=== PATIENT | male | born 1955 | race Caucasian/White ===

== ENCOUNTER 2019-04-18 17:50 | Inpatient (IN) | payer OTHER ==
[~2019-04-18] VITALS: Ht 180.3 cm; Wt 48.7 kg
[2019-04-18 17:20] VITALS: BP 145/70
[2019-04-19 01:27] VITALS: BP 145/70
[2019-04-19 09:00] VITALS: BP 139/63
[2019-04-19] MEDS ORDERED: COZAAR 25 MG TA25 M1 PO (09:10)
[2019-04-19] MEDS ORDERED: LIPITOR 20 MG T20 M1 PO (09:10)
[2019-04-19] MEDS ORDERED: FOLIC ACID1 MG PO (09:10)
[2019-04-19] MEDS ORDERED: METOPROLOL TART25 MG PO (09:11)
[2019-04-19] MEDS ORDERED: PLAVIX 75 MG TA75 MG PO (09:12)
[2019-04-19 12:30] VITALS: BP 120/60
[2019-04-19 19:23] VITALS: BP 149/72
[2019-04-19 23:13] VITALS: BP 149/72
[2019-04-20 09:21] VITALS: BP 132/78
[2019-04-20 19:42] VITALS: BP 141/81
[2019-04-21 09:04] VITALS: BP 137/82
[2019-04-21 10:21] LABS: HEMATOCRIT 43.4 % (42.0-52.0); MCH 30.9 pg (26.0-34.0); MCHC 32.3 g/dL (28.0-37.0); MCV 95.5 fL (80.0-100.0); RBC 4.55 mil/uL (4.50-6.00); RDW 13.7 % (10.5-14.5); WBC 4.5 thou/uL (4.0-11.0)
[2019-04-21 10:31] LABS: CALCIUM 9.8 mg/dL (8.5-10.1); CREATININE 0.9 mg/dL (0.7-1.3); MAGNESIUM 1.9 mg/dL (1.8-2.4); POTASSIUM 4.4 mmol/L (3.5-5.1)
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
[2019-04-21 19:50] VITALS: BP 127/64
[2019-04-21 21:53] VITALS: BP 127/64
[2019-04-22 07:30] VITALS: BP 133/69
[2019-04-22 07:56] VITALS: BP 133/69
[2019-04-22 16:55] LABS: TSH 1.492 uIU/mL (0.358-3.740)
[2019-04-22 19:39] VITALS: BP 154/86
[2019-04-22 23:55] VITALS: BP 154/86
[2019-04-23 07:30] VITALS: BP 136/75
[2019-04-23 08:59] VITALS: BP 136/75
[2019-04-23 09:10] LABS: HIV ANTIBODY Non Reactive (Non Reactive)
[2019-04-23 19:47] VITALS: BP 144/74
[2019-04-24 08:01] VITALS: BP 138/67
[2019-04-24 19:37] VITALS: BP 127/63
[2019-04-25 09:32] VITALS: BP 125/69
[2019-04-25 11:33] VITALS: BP 125/69
[2019-04-25 20:22] VITALS: BP 151/70
[2019-04-25 23:08] LABS: SYPHILIS AB Non Reactive (Non Reactive)
[2019-04-26 08:58] VITALS: BP 125/70
[2019-04-26 12:45] VITALS: BP 125/70
[2019-04-26 20:08] VITALS: BP 119/67
[2019-04-27 07:50] VITALS: BP 123/63
[2019-04-27 20:00] VITALS: BP 124/70
[2019-04-28 07:44] VITALS: BP 144/78
[2019-04-28 10:39] VITALS: BP 95/74
[2019-04-28 19:51] VITALS: BP 136/75
[2019-04-28 21:45] VITALS: BP 136/75
[2019-04-29 08:01] VITALS: BP 159/90
[2019-04-29 10:40] VITALS: BP 104/56
[2019-04-29 20:24] VITALS: BP 140/65
[2019-04-30 09:53] VITALS: BP 127/63
[2019-04-30 16:49] VITALS: BP 127/63
[2019-04-30 19:25] VITALS: BP 153/69
[2019-05-01 07:30] VITALS: BP 134/69
[2019-05-01 09:10] VITALS: BP 134/69
[2019-05-01 20:32] VITALS: BP 124/75
[2019-05-02 09:15] VITALS: BP 112/64
[2019-05-02 20:44] VITALS: BP 129/69
[2019-05-03 08:31] VITALS: BP 129/80
[2019-05-03] MEDS ORDERED: IPRAT-ALBUT 0.5-3 ML INH (12:40)
[2019-05-03] MEDS ORDERED: CLOPIDOGREL75 MG PO (12:40)
[2019-05-03] MEDS ORDERED: LOPRESSOR25 PO (12:41)
[2019-05-03] MEDS ORDERED: COZAAR 25 MG TA25 M1 PO (12:41)
[2019-05-03] MEDS ORDERED: LIPITOR40 MG PO (12:41)
[2019-05-03] MEDS ORDERED: TRAZODONE HCL100 MG PO (12:42)
[2019-05-03] MEDS ORDERED: SYMBICORT80 MCG/4.1 PO (12:43)
[2019-05-03] MEDS ORDERED: PEPCID20 MG PO (12:44)
[2019-05-03] MEDS ORDERED: VITAMIN D325 MCG PO (12:44)
[2019-05-03] MEDS ORDERED: SPIRIVA18 MCG INH (14:46)
[2019-05-03] MEDS ORDERED: MUCINEX600 MG PO (14:46)
[2019-05-03] MEDS ORDERED: PROAIR HFA8.5 GM INH (14:46)
[2019-05-03] MEDS ORDERED: FLOMAX0.4 MG PO (14:51)
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
== END 2019-05-03 15:25 | DRG 57 ==
LOC: SBH 17:50
PROVIDERS: Internal Medicine; ADMIT Psychiatry & Neurology Psychiatry
DX: G30.9 Alzheimer's disease, unspecified (principal); F01.51 Vascular dementia, unspecified severity, with behavioral disturbance; J44.1 Chronic obstructive pulmonary disease with (acute) exacerbation; F02.81 Dementia in other diseases classified elsewhere, unspecified severity, with behavioral disturbance; F14.20 Cocaine dependence, uncomplicated; F23 Brief psychotic disorder; J44.0 Chronic obstructive pulmonary disease with (acute) lower respiratory infection; E78.5 Hyperlipidemia, unspecified; Z60.2 Problems related to living alone; F32.9 Major depressive disorder, single episode, unspecified; F22 Delusional disorders; J20.9 Acute bronchitis, unspecified; I25.10 Atherosclerotic heart disease of native coronary artery without angina pectoris; F10.10 Alcohol abuse, uncomplicated; Z81.8 Family history of other mental and behavioral disorders; Z82.3 Family history of stroke; Z83.3 Family history of diabetes mellitus; Z82.49 Family history of ischemic heart disease and other diseases of the circulatory system; Z95.1 Presence of aortocoronary bypass graft; Z79.899 Other long term (current) drug therapy
CPT/HCPCS: 10880

== ENCOUNTER 2019-06-14 14:25 | Inpatient (IN) | payer OTHER ==
[~2019-06-14] VITALS: Ht 180.3 cm; Wt 76.4 kg
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
[2019-06-14 14:25] VITALS: BP 125/65
[~2019-06-14 14:25] MED LIST: CLOPIDOGREL75 MG PO; COZAAR 25 MG TA25 M1 PO; FLOMAX0.4 MG PO; FOLIC ACID1 MG PO; IPRAT-ALBUT 0.5-3 ML INH; LIPITOR 20 MG T20 M1 PO; LIPITOR40 MG PO; LOPRESSOR25 PO; METOPROLOL TART25 MG PO; MUCINEX600 MG PO; PEPCID20 MG PO; PLAVIX 75 MG TA75 MG PO; PROAIR HFA8.5 GM INH; SPIRIVA18 MCG INH; SYMBICORT80 MCG/4.1 PO; TRAZODONE HCL100 MG PO; VITAMIN D325 MCG PO
[2019-06-14 14:58] LABS: ABSOLUTE NEUTROPHILS 4.8 thou/uL (1.4-8.2); BASOPHILS 0.6 % (0.0-2.0); EOSINOPHILS 1.6 % (0.0-3.0); HEMATOCRIT 37.3 % (42.0-52.0); HEMOGLOBIN 12.4 gm/dL (14.0-18.0); LYMPHOCYTES 11.2 % (24.0-44.0); MCH 29.9 pg (26.0-34.0); MCHC 33.3 g/dL (28.0-37.0); MCV 89.7 fL (80.0-100.0); MONOCYTES 8.1 % (1.0-8.0); PLATELET COUNT 467 thou/uL (150-400); POLYS 78.5 % (36.0-66.0); RBC 4.16 mil/uL (4.50-6.00); RDW 13.5 % (10.5-14.5); WBC 6.1 thou/uL (4.0-11.0)
[2019-06-14 15:08] LABS: ANION GAP 6 mmol/L (7-16); BUN 9 mg/dL (7-18); CALCIUM 8.3 mg/dL (8.5-10.1); CHLORIDE 91 mmol/L (98-107); CO2 28 mmol/L (21-32); CREATININE 0.9 mg/dL (0.7-1.3); GLUCOSE 222 mg/dL (74-106); POTASSIUM 4.5 mmol/L (3.5-5.1); SODIUM 125 mmol/L (136-145)
[2019-06-14 15:18] LABS: ALBUMIN 2.2 g/dL (3.4-5.0); SGOT 150 U/L (15-37); SGPT 133 U/L (30-65); TOTAL BILIRUBIN 0.4 mg/dL (<0.1-1.0); TOTAL PROTEIN 7.3 g/dL (6.4-8.2); TROPONIN-I <0.06 ng/mL (<0.06)
[2019-06-14 16:24] VITALS: BP 129/70
[2019-06-14 18:13] VITALS: BP 128/77
--- NOTE | 2019-06-14 18:52 | NUR ---
PT ADMITTED TO [facility] AT 1830. VITALS AND ASSESSMENT COMPLETED.PT HAS A PRODUCTIVE COUGH, YELLOW SPUTUM. PT ON ROOM AIR, LUNGS DIMINISHED, WHEEZY. PT ALERT AND ORIENTED X4. PT ORIENTED TO ROOM. FALL RISK CONSENT SIGNED. CALL LIGHT IN REACH AND BED ALARM ON. PT DENIES ANY OTHER NEEDS.
[2019-06-14 21:10] VITALS: BP 129/74
[2019-06-14 23:59] VITALS: BP 132/69
[2019-06-15 03:50] VITALS: BP 118/72
--- NOTE | 2019-06-15 05:14 | NUR ---
ASSUMED PT CARE AROUND 1900. A&OX4. DENIES ANY PAIN OR SIGNIFICANT SOA. ADMISSION HX AND ASSESSMENT COMPLETED CHARTED. GIVEN HS SLEEPING MEDICATION PER DR ORDER. PT HAS BEEN SLEEPING MOST OF THE NIGHT. RESPIRATIONS EVEN AND UNLABORED. FALL PRECAUTIONS IN PLACE. NO MAJOR COMPLAINTS THIS SHIFT. PROGRESSING TOWARD POC GOALS.
[2019-06-15 05:28] LABS: HEMATOCRIT 37.1 % (42.0-52.0); HEMOGLOBIN 12.3 gm/dL (14.0-18.0); MCH 29.7 pg (26.0-34.0); MCHC 33.2 g/dL (28.0-37.0); MCV 89.5 fL (80.0-100.0); RBC 4.14 mil/uL (4.50-6.00); RDW 13.5 % (10.5-14.5); WBC 4.6 thou/uL (4.0-11.0)
[2019-06-15 05:51] LABS: CALCIUM 8.2 mg/dL (8.5-10.1); CREATININE 0.9 mg/dL (0.7-1.3); POTASSIUM 4.3 mmol/L (3.5-5.1)
[2019-06-15 08:08] VITALS: BP 127/73
--- NOTE | 2019-06-15 09:28 | NUR ---
Pt alert and oriented X4. Assessment and morning meds given. Call light in reach and bed at lowest level. Pt denies any other needs. Will continue to monitor.
--- NOTE | 2019-06-15 12:40 | 2DMMODE ---
[facility] [place] [address] [address] [place] [address] 2 D/M-MODE ECHOCARDIOGRAM Name: ANDREW RIVERA Room #: 359-P ADM IN .R.#: [id number] Admission: 06/14/19 Attend Phys: Eddie Ni MD Discharge: Date of : 59 Report #: [id number] THIS REPORT FOR: cc: Mustapha Washburn,Mustapha Castano,Roc Ferro MD [facility] ~ APPROVED REPORT Study performed: 06/15/2019 10:32:48 EXAM: Comprehensive 2D, Doppler, and color-flow Echocardiogram Patient Location: In-Patient Room #: 359 Status: routine BSA: 1.97 HR: 87 bpm BP: 127/75 mmHg Other Information Study Quality: Adequate Risk Factors: Cardiac Risk Factors: Smoking Indications Dyspnea CAD 2D Dimensions RVDd: 37.66 mm IVSd: 10.22 (7-11mm) LVOT Diam: 20.63 (18-24mm) LVDd: 51.97 mm PWd: 12.17 (7-11mm) Ascending Ao: 30.27 (22-36mm) LVDs: 34.88 (25-40mm) Aortic Root: 30.80 mm Volumes Left Atrial Volume (Systole) Single Plane 4CH: 57.60 mL Single Plane 2CH: 34.83 mL Aortic Valve AoV Peak Shaq.: 1.43 m/s AO Peak Gr.: 8.22 mmHg AO Mean Gr.: 3.70 mmHg [facility] [address] [place] [address] 2 D/M-MODE ECHOCARDIOGRAM Name: MIGUELANDREW Jonathan Room #: 359-P ADM IN M.R.#: [id number] Admission: 06/14/19 Attend Phys: Eddie Ni MD Discharge: Date of : 59 Report #: [id number] AO V2 Mean: 0.87 m/s AO V2 VTI: 27.40 cm Mitral Valve MV E Max Shaq.: 1.92 m/s Pulmonary Valve PV Peak Shaq.: 0.93 m/s PV Peak Gr.: 3.43 mmHg Tricuspid Valve TR Peak Shaq.: 3.50 m/s TR Peak Gr.: 49.00 mmHg Left Ventricle The left ventricle is normal size. Borderline concentric left ventricular hypertrophy. The left ventricular systolic function is normal. The left ventricular ejection fraction is within the normal range. LVEF is 60%. Right Ventricle Right ventricle is borderline dilated. The right ventricular systolic function is normal. Aortic Valve The aortic valve is normal in structure. No aortic regurgitation is present. There is no aortic valvular stenosis. Mitral Valve Mitral valve leaflets are minimally thickened. Moderate mitral regurgitation. There is reversal of flow in pulmonary veins. Tricuspid Valve Tricuspid valve is grossly normal in structure. Mild tricuspid regurgitation. Estimated PAP 60 mmHg. Pulmonic Valve Pulmonic valve is not well visualized. Trace to mild pulmonic regurgitation. Great Vessels The aortic root is normal in size. IVC is normal in size and collapses >50% with inspiration. Pericardium There is no pericardial effusion. [facility] [address] [place] [address] 2 D/M-MODE ECHOCARDIOGRAM Name: MIGUELANDREW Jonathan Room #: 359-P ADM IN M.R.#: [id number] Admission: 06/14/19 Attend Phys: Eddie Ni MD Discharge: Date of : 59 Report #: [id number] <Conclusion> The left ventricle is normal size. Borderline concentric left ventricular hypertrophy. LVEF is 60%. Right ventricle is borderline dilated. The right ventricular systolic function is normal. The aortic valve is normal in structure. Mitral valve leaflets are minimally thickened. Moderate mitral regurgitation. There is reversal of flow in pulmonary veins. Mild tricuspid regurgitation. Estimated PAP 60 mmHg. The aortic root is normal in size. There is no pericardial effusion. <ELECTRONICALLY SIGNED> By: Roc Simpson MD, FACC 06/15/19 1239 1239 1239 Roc Simpson MD, FACC /INF
[2019-06-15 15:29] VITALS: BP 136/72
[2019-06-15 19:31] VITALS: BP 136/70
[2019-06-16 03:06] LABS: GLYCOHEMOGLOBIN (HGB A1C) 7.7 % (4.8-5.6)
--- NOTE | 2019-06-16 03:23 | NUR ---
ASSUMED PT CARE AROUND 1900. A&OX4. DENIES ANY PAIN. PT STATED HE FEELS LIKE HIS BREATHING IS IMPROVING. C/O DIFFICULTY SLEEPING, EVEN AFTER TAKING SLEEPING MEDICATION. VSS. AFEBRILE. BG ELEVATED, GIVEN INSULIN PER SLIDING SCALE. VOIDS INDEPENDENTLY PER URINAL. NO MAJOR COMPLAINTS THIS SHIFT. PROGRESSING TOWARD POC GOALS. WILL CONTINUE TO MONITOR FURTHER.
[2019-06-16 04:33] VITALS: BP 131/81
[2019-06-16 07:25] VITALS: BP 143/84
[2019-06-16 08:55] LABS: HEMATOCRIT 37.1 % (42.0-52.0); HEMOGLOBIN 11.9 gm/dL (14.0-18.0); MCH 28.4 pg (26.0-34.0); MCHC 31.9 g/dL (28.0-37.0); RBC 4.17 mil/uL (4.50-6.00); RDW 13.5 % (10.5-14.5)
[2019-06-16 09:03] LABS: CALCIUM 8.5 mg/dL (8.5-10.1); CREATININE 0.8 mg/dL (0.7-1.3); MAGNESIUM 1.8 mg/dL (1.8-2.4); POTASSIUM 4.7 mmol/L (3.5-5.1)
[2019-06-16 09:09] LABS: ALBUMIN 2.2 g/dL (3.4-5.0); DIRECT BILIRUBIN < 0.1 mg/dL (<0.1-0.2); SGOT 44 U/L (15-37); SGPT 104 U/L (30-65); TOTAL BILIRUBIN 0.3 mg/dL (<0.1-1.0); TOTAL PROTEIN 6.9 g/dL (6.4-8.2)
[2019-06-16 09:10] LABS: WBC 17.9 thou/uL (4.0-11.0)
--- NOTE | 2019-06-16 12:52 | HC ---
[facility] [place] [address] CONSULTATION Name: ANDREW RIVERA Room #: 359-P ADM IN .R.#: [id number] Admission: 06/14/19 Attend Phys: Eddie Ni MD Discharge: Date of : 59 Report #: [id number] THIS REPORT FOR: cc: Mustapha Washburn Eric DO Al-Mubaslat, Ahmad MD ~ CC: Mustapha Prasad DATE OF SERVICE: 06/15/2019 ENDOCRINE CONSULTATION NOTE CONSULTING PHYSICIAN: Dr. Lassiter. REASON FOR CONSULTATION: Hyperglycemia. HISTORY OF PRESENT ILLNESS: This is a 63-year-old male patient whose medical background is significant for hypertension, coronary artery disease, COPD, hyperlipidemia who has been staying at the [facility]. The patient was sent to the ER yesterday with complaints of progressive cough, congestion, difficulty breathing as well as generalized weakness. The patient was then admitted with a diagnosis of pneumonia, influenza A for which he tested positive and hyponatremia. The patient was admitted for further care and monitoring. Given his presenting issues, the patient started therapy with Levaquin, Tamiflu and high-dose steroid therapy in the form of Solu-Medrol 40 mg q.i.d. As this was done, it was noted that the patient's blood glucose levels have risen to as high as 323 mg/dL. These have ranged specifically between 222 and 323 mg/dL. Blood glucose documentation in 04/2019 was at 174 mg/dL. The patient is not aware of any prior diagnosis of hyperglycemia or type 2 diabetes mellitus and has never been on treatment for diabetes in the past. However, his family history is noted for diabetes mellitus affecting his mother. REVIEW OF SYSTEMS: CONSTITUTIONAL: Fatigue, tiredness, intermittent issues with fever, low grade and chills. No weight changes. HEENT: Negative for sinus pain, but noted for sinus congestion, ear fullness. PULMONARY: Shortness of breath and cough productive, no hemoptysis. CARDIAC: Exertional dyspnea. Occasional orthopnea, lower extremity swelling. No chest pain, palpitations or syncope. GASTROINTESTINAL: Abdominal discomfort, nausea, but no vomiting. NEUROLOGY: Negative for loss of consciousness, seizure activity or severe frequent headaches. UROLOGY: Negative for dysuria, hematuria. PSYCHIATRIC: Negative for hallucinations, delusions. [facility] [address] [place] [address] CONSULTATION Name: MIGUELANDREW Jonathan Room #: 359-P [facility] IN .R.#: [id number] Admission: 06/14/19 Attend Phys: Eddie Ni MD Discharge: Date of : 59 Report #: [id number] Otherwise, review of systems noncontributory other than those mentioned in HPI. PAST MEDICAL HISTORY: Noted for: 1. Hypertension. 2. Hyperlipidemia. 3. Chronic obstructive pulmonary disease. 4. Gastroesophageal reflux disease. 5. Coronary artery disease, status post coronary artery bypass graft. 6. Benign prostatic hypertrophy. OUTPATIENT MEDICATIONS: Include: 1. Atrovent. 2. Plavix. 3. Atorvastatin. 4. Metoprolol 25 mg b.i.d. 5. Losartan 25 mg daily. 6. Trazodone 100 mg p.r.n. 7. Symbicort. 8. Pepcid. 9. Vitamin D3. 10. Mucinex. 11. Spiriva. 12. ProAir. 13. Flomax. ALLERGIES: The patient has no known drug allergies. FAMILY HISTORY: Noted for type 2 diabetes mellitus. SOCIAL HISTORY: The patient lives at the [facility]. Denies the active use of alcohol, tobacco or illicit drugs. PHYSICAL EXAMINATION: GENERAL: male patient who is not in apparent pain or distress. VITAL SIGNS: Blood pressure is 127/73 mmHg, heart rate is 81 beats per minute, respirations 20 per minute, temperature 36.3 degrees. CONSTITUTIONAL: The patient is sitting upright in bed, appears comfortable, not in apparent pain or distress. HEENT: Anicteric sclerae. Intact extraocular motions. NECK: Supple, without JVD. No thyromegaly. CHEST: Noted for moderate entry bilaterally with scattered rales and rhonchi as well as wheezes. HEART: Regular rate and rhythm without murmurs or gallops. ABDOMEN: Soft and lax without tenderness or organomegaly, has active bowel sounds. [address] [address] CONSULTATION Name: MIGUELANDREW Jonathan Room #: 359-P [facility] IN M.R.#: [id number] Admission: 06/14/19 Attend Phys: Eddie Ni MD Discharge: Date of : 59 Report #: [id number] EXTREMITIES: Lower extremity exam is noted for trace edema, skin breaks or ulcerations. NEUROLOGIC: Awake, alert and oriented to time, place and person. The remainder of his examination is largely nonfocal. PSYCHIATRIC: Pleasant, interactive. Normal mood and affect. LABORATORY DATA: Blood glucose values are as noted above. Otherwise, sodium 130, was 125 on arrival, his baseline 04/2019 was at 134; potassium 4.3; chloride 93; CO2 of 27; anion gap 10; BUN 12; creatinine 0.9; glucose 323. AST 150, total bilirubin 0.44, calcium 8.2, magnesium 1.9, alkaline phosphatase 159, ALT 133, protein 7.3, albumin 2.2. EGFR 86. White blood count 4.6, hemoglobin 12.3, hematocrit 37.1, platelets 412. TSH in 04/2019 was 1.492. ASSESSMENT AND PLAN: 1. Hyperglycemia. Although the patient does not have a formal diagnosis of diabetes mellitus, his recorded blood glucose values were well within a diabetic range. Undoubtedly, the current significant pulmonary stress in the form of active influenza and pneumonia as well as the use of high dose steroid therapy have collectively place the patient under more than usual pressure, but the occurrence of severe hyperglycemia under these conditions strongly suggests that baseline hyperglycemia might exist at some level as well. The patient was counseled about this findings at length and I highlighted the importance of implementing adequate glycemic control both short term and superintendent [employer]. In order to investigate his overall outlook, I will obtain a hemoglobin A1c. In the immediate setting, I will place the patient on a customized low intensity Humalog supplemental scale, whereby he would receive insulin only if blood glucose values are above 200 mg/dL. I will also place him on metformin therapy at a dose of 750 mg b.i.d., which should specifically assist with the issue of steroid-induced hyperglycemia. Blood glucose monitoring will commence a.c. and at bedtime and further therapeutic changes will be made accordingly. 2. Hypertension. The patient's level of blood pressure control is adequate, he is to continue with the current regimen of losartan and metoprolol. 3. Hyperlipidemia. The patient is on atorvastatin therapy and tolerates it well, he is to continue with the same. 4. Hyponatremia. As noted above, the patient presented with significant hyponatremia with a sodium of 125 that quickly recovered to 130. There is a good chance that this is due to SIADH due to his extensive pulmonary process. This will be followed periodically and if hyponatremia persists or worsens, further studies might be warranted. I certainly appreciate this consultation by Dr. Lassiter. <ELECTRONICALLY SIGNED> By: Royal Levi MD 06/16/19 1252 1330 1635 Royal Levi MD /nt
[2019-06-16 16:36] VITALS: BP 128/77
--- NOTE | 2019-06-16 19:34 | NUR ---
pt is A&OX3, PT is continuing IV abx and anti-flu medication, pt's vs are stable, pt denies pain and sob , pt has started NS @ 100ml/hr for abnormal lab results.
[2019-06-16 19:40] VITALS: BP 143/78
--- NOTE | 2019-06-17 03:52 | NUR ---
C/O indigestion , tums given with some relief. Tolerating room air well with no respiratory distress. Cont. on droplet precaution for Influenza A. Afebrile. Making progress towards care plan goals.
[2019-06-17 04:12] VITALS: BP 143/83
[2019-06-17 06:23] LABS: HEMATOCRIT 35.6 % (42.0-52.0); HEMOGLOBIN 11.7 gm/dL (14.0-18.0); MCH 29.5 pg (26.0-34.0); MCV 89.4 fL (80.0-100.0); RBC 3.98 mil/uL (4.50-6.00); RDW 13.2 % (10.5-14.5); WBC 13.3 thou/uL (4.0-11.0)
[2019-06-17 06:35] LABS: CALCIUM 8.5 mg/dL (8.5-10.1); CREATININE 0.9 mg/dL (0.7-1.3); MAGNESIUM 1.7 mg/dL (1.8-2.4); POTASSIUM 5.2 mmol/L (3.5-5.1)
[2019-06-17 07:41] VITALS: BP 140/89
--- NOTE | 2019-06-17 09:47 | NUR ---
Nutrition: Pt admit from facility with hyponatremia, COPD exacerbation. Positive results for influenza A and pneumonia. Hx of CABG, ETOH abuse, neurocognitive disorder. Nsg indicated 2 point nutrition risk d/t poor appetite and recent weight loss. Wt history shows upwards trend from 157#. Pt reports usual weight around 170# and is currently 173# with 100% intake at all meals and snacks. New Dx of Type 2 DM. Diabetes education started from nsg. Pt was alert and accepted additional diabetes diet information. See RD Education note. Blood glucose: 218-465 past 3 days, steroid meds noted. HgA1c 7.7%. Started Lantus, Lispro, and Metformin. Changed diet from regular to carb control diabetic. No need for supplements at this time. Cardiology, endocrinology, and pulmonary following. Consider low nutrition risk.
[2019-06-17 16:35] VITALS: BP 138/84
--- NOTE | 2019-06-17 17:12 | NUR ---
INITIAL ASSESSMENT: Received consult due to pt being admitted from [facility]. MAGGY reviewed chart and spoke with nursing and attending physician. Pt was in [facility] unit in April of 2019 and discharged to [facility] on . Pt [place]. Pt is currently in droplet isolation for Influenza A. Pt with hx of neurocognitive disorder. Pt with hx of ETOH use. MAGGY left voice message for pt's son, Osorio, to provide update and confirm discharge plan. funeral planner to fax clinical info to [facility] tomorrow for review. MAGGY is following to assist as needed with discharge planning.
--- NOTE | 2019-06-17 19:44 | NUR ---
RESTED IN ROOM THROUGH THE DAY. DOES NOT SEEM TO BE IN PAIN. RESPIRATIONS ARE EVEN NON LABORED. CONT ON ABT AND NO ADVERSE EFFECTS NOTED. WILL CONT WITH PLAN OF CARE.
[2019-06-17 20:10] VITALS: BP 141/76
[2019-06-18 04:10] VITALS: BP 117/63
--- NOTE | 2019-06-18 05:33 | NUR ---
Pt. slept fair during the night. Tolerating room air well with no respiratory distress. Cont. on isolation for influenza , afebrile. No confusion from sodium lvel being low. Will continue to monitor.
[2019-06-18 08:01] VITALS: BP 139/82
[2019-06-18 12:10] LABS: CALCIUM 8.6 mg/dL (8.5-10.1); CREATININE 0.8 mg/dL (0.7-1.3); POTASSIUM 5.2 mmol/L (3.5-5.1)
[2019-06-18 13:07] VITALS: BP 137/69
--- NOTE | 2019-06-18 19:17 | NUR ---
Received pt from [facility]. Isolation maintained for the flu, instructed the pt sputum sample is needed. Medication and diet are well tolerated. VS stable, no signs or verbalizations of distress have been noted. Endorsed to the night nurse.
[2019-06-18 19:55] VITALS: BP 134/81
[2019-06-19 07:40] VITALS: BP 127/87
--- NOTE | 2019-06-19 07:43 | NUR ---
ASSUMED PT CARE AROUND 1929. AXOX4. ISO FOR IFLUENZA. NO S/S ACUTE DISTRESS NOTED OR REPORTED AT THIS TIME. CARE TRANSFERRED TO INCOMING RN AT THIS TIME
--- NOTE | 2019-06-19 12:32 | EKG ---
[facility] [place] [address] ELECTROCARDIOGRAM REPORT Name: MIGUELANDREW Jonathan Room #: 456-P ADM IN M.R.#: [id number] Admission: 06/14/19 Attend Phys: Eddie Ni MD Discharge: Date of : 59 Report #: [id number] THIS REPORT FOR: cc: Mustapha Washburn,Mustapha Palacios,Abisai Reynolds MD [facility] THIS REPORT FOR: //name// [facility] ED Test Date: 2019-06-14 Test Time: 14:41:17 Pat Name: ANDREW RIVERA Department: Room: [facility] Gender: M Knotter Hand: krishna : 1955 Requested By: Janelle Delcid Order Number: [id number] MD: Abisai Chávez Measurements Intervals [place] Rate: 88 P: 60 NE: 128 QRS: 66 QRSD: 102 T: 90 QT: 420 QTc: 509 Interpretive Statements Sinus rhythm Left ventricular hypertrophy Abnrm T, probable ischemia Prolonged QT interval No previous ECG available for comparison Electronically Signed On 06-14-2019 17:33:38 [employer] by Abisai Chávez [email or web address] <ELECTRONICALLY SIGNED> By: Abisai Chávez MD, FACC 06/14/19 1733 1441 1441 Abisai Chávze MD, [facility] /EPI
[2019-06-19 12:39] LABS: HEMATOCRIT 38.8 % (42.0-52.0); HEMOGLOBIN 12.6 gm/dL (14.0-18.0); MCHC 32.5 g/dL (28.0-37.0); MCV 89.4 fL (80.0-100.0); RBC 4.34 mil/uL (4.50-6.00); RDW 13.4 % (10.5-14.5); WBC 13.7 thou/uL (4.0-11.0)
--- NOTE | 2019-06-19 12:42 | EKG ---
[facility] [place] [address] ELECTROCARDIOGRAM REPORT Name: MIGUELANDREW Jonathan Room #: 456-P ADM IN M.R.#: [id number] Admission: 06/14/19 Attend Phys: Eddie Ni MD Discharge: Date of : 59 Report #: [id number] THIS REPORT FOR: cc: Mustapha Washburn,Mustapha Palacios,Abisai Reynolds MD [facility] THIS REPORT FOR: //name// [facility] Test Date: 2019-06-15 Test Time: 11:24:47 Pat Name: ANDREW RIVERA Department: Room: 359 P Gender: M Tissue Packer: : 1955 Requested By: Roc Simpson Order Number: [id number] MD: Abisai Chávez Measurements Intervals [place] Rate: 88 P: 56 [place]: 154 QRS: 55 QRSD: 102 T: 82 QT: 413 QTc: 500 Interpretive Statements Sinus rhythm Abnrm T, consider ischemia Compared to ECG 06/14/2019 14:41:17 no significant change was found Electronically Signed On 06-17-2019 7:29:49 [employer] by Abisai Chávez [email or web address] <ELECTRONICALLY SIGNED> By: Abisai Chávez MD, FACC 06/17/19 0729 1124 1124 Abisai Chávez MD, [facility] /EPI
[2019-06-19 12:45] LABS: CALCIUM 8.7 mg/dL (8.5-10.1); CREATININE 0.8 mg/dL (0.7-1.3); POTASSIUM 4.9 mmol/L (3.5-5.1)
--- NOTE | 2019-06-19 16:16 | NUR ---
CARE TEAM INDICATED THAT PT IS MEDICALLY STABLE TO DC BACK TO [facility] THIS DAY. CM HAS CALLED AND NOTIFIED PT'S SON OF LIKELY DC. CM CALLED AND SPOKE WITH JANENE GIRALDO HE IS AWARE AND AGREEABLE. HE ASKED THAT ORDERS BE FAXED TO ATTN:JANENE AND THAT HE BE NOTIFIED OF APPROXIMATE TIME OF PICKUP AT . [facility] CAN BE ARRANGED BY CALLING PT NEEDS [facility] TRANSPORT TO [facility] [address] [place] [address]. NOTIFY PT'S SON OF DISCHARGE TIME.
[2019-06-19] MEDS ORDERED: LINEZOLID600 MG PO (16:27)
[2019-06-19] MEDS ORDERED: LEVOFLOXACIN750 MG PO (16:27)
[2019-06-19] MEDS ORDERED: GLUCOPHAGE1000 MG PO (16:28)
[2019-06-19] MEDS ORDERED: PREDNISONE 10 M10 MG PO (16:29)
[2019-06-19] MEDS ORDERED: TRADJENTA5 MG PO (16:41)
--- NOTE | 2019-06-19 18:45 | NUR ---
Assumed patient care at 0715. Vital signs stable. Alert and oriented x's 4. Patient on room air. Insulin given per protocol. POC followed per protocol. Patient consumed 100% of all meals. Patient Discharged with all of his belongings at 1835. Transportation Company took patient back to Nursing Facility that he came from. Patient denied pain throughout this shift.
--- NOTE | 2019-06-19 22:07 | HC ---
[facility] [place] [address] CONSULTATION Name: ANDREW RIVERA Room #: 456-P [facility] IN ..#: [id number] Admission: 06/14/19 Attend Phys: Eddie Ni MD Discharge: 06/19/19 Date of : 59 Report #: [id number] THIS REPORT FOR: cc: Mustapha Washburn,Mustapha Dowd,Arie Motta MD ~ CC: Mustapha Ni DATE OF SERVICE: 06/18/2019 INFECTIOUS DISEASE CONSULTATION REASON FOR CONSULTATION: I was asked to evaluate concerning influenza and associated left lung pneumonia. HISTORY OF PRESENT ILLNESS: This is a 63-year-old with neurocognitive disorder, underlying long-term alcohol use with hypertension, COPD, who has been living in a [facility]. He was hospitalized on 06/14/2019 with diagnosis of hyponatremia with a sodium down to 125. He had evidence of influenza A and left lower lobe pulmonary infiltrate. He subsequently has been placed on IV antibiotic therapy along with Tamiflu. CT scan did show consolidation in the left lower lobe. He was given corticosteroids for his COPD. His white count has been elevated. No fever, chills or sweats reported. Overall, he states he feels better over the last 24 hours. He was a poor historian otherwise. He does note that that he does have a roommate, but did not notice any respiratory issues in that resident. Denies any other HIV risk factors. REVIEW OF SYSTEMS: A 10-point review of system was negative other than what has been described above. ALLERGIES: None known. MEDICATIONS: As noted including Levaquin and Tamiflu along with Solu-Medrol. 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 FAMILY HISTORY: Noncontributory. SOCIAL HISTORY: Nonsmoker. No current alcohol intake. PHYSICAL EXAMINATION: VITAL SIGNS: Afebrile and hemodynamically stable. GENERAL: He is alert and cooperative. SKIN: Without rash or decubitus. No palpable adenopathy. [facility] [address] [place] [address] CONSULTATION Name: ANDREW RIVERA Room #: 456-P [facility] IN ..#: [id number] Admission: 06/14/19 Attend Phys: Eddie Ni MD Discharge: 06/19/19 Date of : 59 Report #: [id number] EYES: Without scleral icterus. MOUTH: Without mucositis. NECK: Supple. LUNGS: Consolidation in the left base posteriorly. HEART: Regular, without murmur, gallop or rub. ABDOMEN: Soft and nontender. No hepatosplenomegaly or mass appreciated. GENITOURINARY: External genitalia without lesion. RECTAL: Not performed. EXTREMITIES: Without clubbing, cyanosis or edema. Cranial nerves were intact. Strength in the upper and lower extremities along with sensation in the upper and lower extremities to fine touch was symmetric and within normal limits. PSYCHIATRIC: Mood, he was pleasant. Did not appear anxious or depressed. LABORATORY STUDIES: Reviewed. MICROBIOLOGY: Reviewed. Chest x-ray reviewed. IMPRESSION: 1. A 63-year-old with influenza A and secondary bacterial infection involving the left lung. This is in the setting of healthcare-associated exposure. Would be concerned about Staph aureus as a complication of influenza in addition to gram-negative organisms seen in the [facility]. 2. Chronic obstructive pulmonary disease on corticosteroids now and I suspect this is driving his leukocytosis. 3. Coronary artery disease. 4. Alcohol with dementia issues. RECOMMENDATIONS: We will continue with Zyvox, Levaquin and finish his course of Tamiflu. Check MRSA screen. Await sputum culture results. Check serial laboratory studies as steroids are decreased. Check serial chest x-ray to ensure infiltrates cleared. If not, we will need further evaluation. <ELECTRONICALLY SIGNED> By: Arie Brooks MD 06/19/19 2207 2310 0012 Arie Brooks MD /nt
== END 2019-06-19 18:43 | DRG 643 ==
LOC: ER 14:25 → EROBS 16:33 → 3W 16:33 → 4W 06-18 11:47
PROVIDERS: Internal Medicine; Physician Assistant; ADMIT Hospitalist
DX: E22.2 Syndrome of inappropriate secretion of antidiuretic hormone (principal); J10.00 Influenza due to other identified influenza virus with unspecified type of pneumonia; F10.27 Alcohol dependence with alcohol-induced persisting dementia; J44.1 Chronic obstructive pulmonary disease with (acute) exacerbation; I50.9 Heart failure, unspecified; Y95 Nosocomial condition; E78.00 Pure hypercholesterolemia, unspecified; M19.90 Unspecified osteoarthritis, unspecified site; I25.10 Atherosclerotic heart disease of native coronary artery without angina pectoris; R79.89 Other specified abnormal findings of blood chemistry; E78.5 Hyperlipidemia, unspecified; K21.9 Gastro-esophageal reflux disease without esophagitis; N40.0 Benign prostatic hyperplasia without lower urinary tract symptoms; Y90.9 Presence of alcohol in blood, level not specified; R41.9 Unspecified symptoms and signs involving cognitive functions and awareness; E11.65 Type 2 diabetes mellitus with hyperglycemia; E87.5 Hyperkalemia; I11.0 Hypertensive heart disease with heart failure; Z95.1 Presence of aortocoronary bypass graft; Z79.899 Other long term (current) drug therapy; Z87.891 Personal history of nicotine dependence; Z79.02 Long term (current) use of antithrombotics/antiplatelets; Z79.51 Long term (current) use of inhaled steroids; Z80.8 Family history of malignant neoplasm of other organs or systems
CPT/HCPCS: 10047; 10879